=== PATIENT | female | born 1955 | race Caucasian/White ===

== ENCOUNTER 2020-11-14 08:58 | Emergency (ER) | payer MEDICARE, OTHER ==
[~2020-11-14] VITALS: Ht 160 cm; Wt 68.2 kg
[~2020-11-14 08:58] MED LIST: ASPI-1444 PO; CLON1TAB PO; GABA-1181 PO; SERT-158 PO; TOPI25 PO
[2020-11-14] MEDS ORDERED: LIDOCAINE/PF 2% 5 ML VIAL IM ONE (09:10)
[2020-11-14] MEDS ORDERED: PROPOFOL 1% 20 ML VIAL IVP ONE (09:10)
[2020-11-14] MEDS ORDERED: SUCCINYLCHOLINE CHLORIDE 20 MG/ML 10 ML VIAL IVP ONE (09:10)
[2020-11-14] MEDS ORDERED: MORPHINE SULFATE 4 MG/ML SYRINGE IVP ONE (09:30)
[2020-11-14] MEDS ORDERED: KETAMINE HCL 50 MG/ML 10 ML VIAL ONE (10:18)
[2020-11-14] MEDS ORDERED: KETAMINE HCL 50 MG/ML 10 ML VIAL IVP ONE (10:30)
[2020-11-14 12:42] VITALS: BP 146/73
== END 2020-11-14 13:11 | disposition left against medical advice (07) ==
LOC: EMS 09:09
DX: T84.021A Dislocation of internal left hip prosthesis, initial encounter (principal); F17.210 Nicotine dependence, cigarettes, uncomplicated; F41.9 Anxiety disorder, unspecified; J44.9 Chronic obstructive pulmonary disease, unspecified; X50.9XXA Other and unspecified overexertion or strenuous movements or postures, initial encounter; Y93.89 Activity, other specified; Y92.89 Other specified places as the place of occurrence of the external cause; Y99.8 Other external cause status; Z79.899 Other long term (current) drug therapy; Z79.82 Long term (current) use of aspirin
CPT/HCPCS: 27265; 72170; 96374; 99152; 99285; J0330; J2270; J2704; J3490 ×2

== ENCOUNTER 2021-02-04 18:52 | Inpatient (IN) | payer MEDICARE, MEDICAID ==
[~2021-02-04] VITALS: Ht 152.4 cm; Wt 68.8 kg
[2021-02-04] MEDS ORDERED: FLUO20CA36 PO (19:12)
[2021-02-04] MEDS ORDERED: METH-659 PO (19:12)
[2021-02-04] MEDS ORDERED: CARI1.5C PO (19:20)
[2021-02-04] MEDS ORDERED: SERT-162 PO (19:20)
[2021-02-04] MEDS ORDERED: DIVA-112 PO (19:20)
[2021-02-04] MEDS ORDERED: PREMC VG (19:20)
[2021-02-04] MEDS ORDERED: IPRA4AER IH (19:20)
[2021-02-04] MEDS ORDERED: ALEN70TA80 PO (19:20)
[2021-02-04] MEDS ORDERED: SUMA50TA17 PO (19:20)
[2021-02-04] MEDS ORDERED: TIOT185 IH (19:20)
[2021-02-04] MEDS ORDERED: ALBU8HFA IH (19:20)
[2021-02-04] MEDS ORDERED: GABA-1201 PO (19:20)
[2021-02-04] MEDS ORDERED: IBUP-2077 PO (19:20)
[2021-02-04] MEDS ORDERED: LORazepam 2 MG TABLET PO PRN (21:30)
[2021-02-04] MEDS ORDERED: ZOLPIDEM TARTRATE 10 MG TABLET PO PRN (21:30)
[2021-02-04 21:34] LABS: BASOPHILS % (AUTO) 0.8 % (0.0-2.0); EOSINOPHILS % (AUTO) 3.4 % (1.0-6.0); HEMATOCRIT 38.3 % (36-46); HEMOGLOBIN 12.7 g/dL (12.0-16.0); LYMPHOCYTES # (AUTO) 4.6 K/uL (1.0-4.8); LYMPHOCYTES % (AUTO) 51.2 % (22.0-44.0); MEAN CORPUSCULAR HEMOGLOBIN 31.4 pg (26.0-34.0); MEAN CORPUSCULAR HGB CONC 33.1 G/dL (31.0-37.0); MEAN CORPUSCULAR VOLUME 95 fL (80-100); MONOCYTES # (AUTO) 0.8 K/uL (0.1-1.0); MONOCYTES % (AUTO) 8.5 % (2.0-9.0); NEUTROPHILS # (AUTO) 3.3 K/uL (1.8-7.7); NEUTROPHILS % (AUTO) 36.1 % (40.0-70.0); PLATELET COUNT (AUTO) 288 K/uL (150-450); RED BLOOD CELL COUNT(AUTO) 4.04 MIL/uL (4.00-5.20); RED CELL DISTRIBUTION WIDTH 14.3 % (11.5-14.5)
[2021-02-04 21:37] LABS: COVID AG,FIA SOURCE NASOPHARYNGEAL
[2021-02-04 21:42] LABS: ANION GAP 10 mmol/L (8-16); CALCIUM, TOTAL 8.4 mg/dL (8.8-10.5); CARBON DIOXIDE 28 mmol/L (22-29); CHLORIDE 106 mmol/L (98-107); CREATININE 0.67 mg/dL (0.60-1.30); GLOMERULAR FILTR. RATE CALC > 60 mL/min (>60); GLUCOSE,RANDOM 121 mg/dL (70-110); POTASSIUM 4.2 mmol/L (3.5-5.1); SODIUM SERUM 144 mmol/L (136-145); UREA NITROGEN, BLOOD 15 mg/dL (7-18)
[2021-02-04 21:48] LABS: ALANINE AMINOTRANSFERASE 27 U/L (12-78); ALBUMIN 3.7 g/dL (3.4-5.0); ALKALINE PHOSPHATASE 60 U/L (46-116); ASPARTATE AMINOTRANSFERASE 16 U/L (15-37); BILIRUBIN,TOTAL 0.1 mg/dL (0.1-1.0); TOTAL PROTEIN, SERUM 7.2 g/dL (6.4-8.2)
[2021-02-04 22:33] LABS: APPEARANCE,URINE CLEAR (CLEAR); BILIRUBIN,URINE NEGATIVE (NEGATIVE); GLUCOSE, URINE (UA) NEGATIVE (NEGATIVE); KETONES,URINE TRACE mg/dL (NEGATIVE); LEUKOCYTE ESTERASE ,URINE TRACE (NEGATIVE); NITRATE,URINE NEGATIVE (NEGATIVE); OCCULT BLOOD,URINE NEGATIVE (NEGATIVE); PROTEIN,URINE NEGATIVE (NEGATIVE)
[2021-02-04 22:37] LABS: AMPHET/METH SCREEN,URINE POSITIVE (NEGATIVE); BARBITURATE SCREEN, URINE NEGATIVE (NEGATIVE); BENZODIAZEPINES SCREEN,URINE NEGATIVE (NEGATIVE); CANNABINOID SCREEN,URINE NEGATIVE (NEGATIVE); COCAINE SCREEN,URINE NEGATIVE (NEGATIVE); METHADONE SCREEN, URINE NEGATIVE (NEGATIVE); OPIATE SCREEN,URINE POSITIVE (NEGATIVE); PHENCYCLIDINE SCREEN,URINE NEGATIVE (NEGATIVE)
[2021-02-04 22:40] LABS: BACTERIA,URINE Rare /HPF (None Seen); RBC,URINE 0-2 /HPF (0-2); SQUAMOUS EPITHELIAL CELL,UR Moderate /LPF (None Seen)
[2021-02-04 22:41] LABS: CALCIUM OXALATE CRYSTALS,UR Moderate /LPF (None Seen)
[2021-02-05] VITALS (11 sets, daily range): BP systolic 111–138; BP diastolic 66–82
[2021-02-05 00:39] LABS: CHOL/HDL RATIO 4.2 (3.9-5.7); CHOLESTEROL 219 mg/dL (131-200); HDL CHOLESTEROL 52 mg/dL (40-60); TRIGLYCERIDES 607 mg/dL (15-150)
[2021-02-05] MEDS: LORazepam 2 MG TABLET PO PRN (01:43)
[2021-02-05] MEDS ORDERED: GuaiFENesin/D-METHORPHAN [SUGAR-FREE] 200-20MG/10 ML SYRUP UDCUP PO PRN (06:45)
[2021-02-05] MEDS ORDERED: MAGNESIUM HYDROXIDE SUSPENSION 30 ML UDCUP PO PRN (06:45)
[2021-02-05] MEDS ORDERED: ALBUTEROL SULFATE HFA 90 MCG/PUFF 8 GM INHALER IH PRN (06:45)
[2021-02-05] MEDS ORDERED: IBUPROFEN 400 MG TABLET PO PRN (06:45)
[2021-02-05] MEDS ORDERED: DOCUSATE SODIUM 100 MG CAPSULE PO PRN (06:45)
[2021-02-05] MEDS ORDERED: CloNIDine HCL 0.1 MG TABLET PO PRN (06:45)
[2021-02-05] MEDS ORDERED: PETROLATUM,WHITE 28 GM JELLY TP PRN (06:45)
[2021-02-05] MEDS ORDERED: NICOTINE 14 MG/24 HOUR PATCH TD PRN (06:45)
[2021-02-05] MEDS ORDERED: LOPERAMIDE HCL 2 MG CAPSULE PO PRN (06:45)
[2021-02-05] MEDS ORDERED: ONDANSETRON HCL 4 MG TABLET PO PRN (06:45)
[2021-02-05] MEDS ORDERED: MAG HYDROX/AL HYDROX/SIMETH ES 30 ML SUSPENSION UDCUP PO PRN (06:45)
[2021-02-05] MEDS ORDERED: LORazepam 2 MG TABLET PO PRN (07:00)
[2021-02-05] MEDS: LORazepam 2 MG TABLET PO SCH ×4 (08:21→20:43)
[2021-02-05] MEDS: ASPIRIN 81 MG DR TABLET PO SCH (08:21)
[2021-02-05] MEDS: GABAPENTIN 400 MG CAPSULE PO SCH ×3 (08:21→16:36)
[2021-02-05] MEDS: METHOCARBAMOL 500 MG TABLET PO SCH ×2 (12:43→16:36)
[2021-02-05] MEDS: HALOPERIDOL 5 MG TABLET PO PRN (13:39)
[2021-02-05] MEDS ORDERED: DENTURE ADHESIVE 68 GM CREAM DT PRN (15:15)
[2021-02-05] MEDS: ACETAMINOPHEN 325 MG TABLET PO PRN (17:24)
[2021-02-05] MEDS: SIMVASTATIN 10 MG TABLET PO SCH (20:43)
[2021-02-06 00:43] VITALS: BP 115/74
[2021-02-06 06:46] VITALS: BP 115/65
[2021-02-06 08:24] VITALS: BP 140/71
[2021-02-06 08:24] LABS: FREE T4 (FREE THYROXINE) 0.69 ng/dL (0.76-1.46); THYROID STIMULATING HORMONE 0.58 uIU/mL (0.36-3.74)
[2021-02-06] MEDS: ASPIRIN 81 MG DR TABLET PO SCH (08:52)
[2021-02-06] MEDS: METHOCARBAMOL 500 MG TABLET PO SCH ×2 (08:53→16:29)
[2021-02-06] MEDS: GABAPENTIN 400 MG CAPSULE PO SCH ×3 (08:53→16:30)
[2021-02-06] MEDS: LORazepam 2 MG TABLET PO SCH ×4 (08:53→20:45)
[2021-02-06] MEDS: ACETAMINOPHEN 325 MG TABLET PO PRN (12:16)
[2021-02-06] MEDS: FOLIC ACID 1 MG TABLET PO SCH (13:25)
[2021-02-06] MEDS: THIAMINE 100 MG TABLET PO SCH (13:25)
[2021-02-06] MEDS: OMEGA-3/DHA/EPA/FISH OIL 1,000 MG CAPSULE PO SCH (13:25)
[2021-02-06 14:41] VITALS: BP 107/53
[2021-02-06 16:05] VITALS: BP 103/65
[2021-02-06] MEDS: DIVALPROEX SODIUM 500 MG DR TABLET PO SCH (20:45)
[2021-02-06] MEDS: SIMVASTATIN 10 MG TABLET PO SCH (20:45)
[2021-02-07 04:17] VITALS: BP 114/58
[2021-02-07] MEDS ORDERED: LORazepam 1 MG TABLET PO PRN (07:00)
[2021-02-07 08:13] VITALS: BP 115/74
[2021-02-07] MEDS: METHOCARBAMOL 500 MG TABLET PO SCH ×2 (08:18→16:10)
[2021-02-07] MEDS: DIVALPROEX SODIUM 500 MG DR TABLET PO SCH ×2 (08:18→20:13)
[2021-02-07] MEDS: OMEGA-3/DHA/EPA/FISH OIL 1,000 MG CAPSULE PO SCH (08:18)
[2021-02-07] MEDS: THIAMINE 100 MG TABLET PO SCH (08:18)
[2021-02-07] MEDS: GABAPENTIN 400 MG CAPSULE PO SCH ×3 (08:20→16:10)
[2021-02-07] MEDS: ASPIRIN 81 MG DR TABLET PO SCH (08:21)
[2021-02-07] MEDS: FLUoxetine HCL 20 MG CAPSULE PO SCH (08:21)
[2021-02-07] MEDS: LORazepam 1 MG TABLET PO SCH ×4 (08:21→20:13)
[2021-02-07] MEDS: FOLIC ACID 1 MG TABLET PO SCH (08:21)
[2021-02-07] MEDS: HALOPERIDOL 5 MG TABLET PO PRN ×2 (09:52→17:17)
[2021-02-07] MEDS ORDERED: *PATIENT'S OWN MED [ENTER DRUG, DOSE, FREQUENCY IN COMMENTS] CLINICAL ONE (13:15)
[2021-02-07] MEDS ORDERED: FIXODENT PO PRN ×2 (13:15→13:16)
[2021-02-07 16:20] VITALS: BP 105/62
[2021-02-07] MEDS: HALOPERIDOL 5 MG TABLET PO SCH (20:14)
[2021-02-07] MEDS: SIMVASTATIN 10 MG TABLET PO SCH (20:14)
[2021-02-08 00:53] VITALS: BP 116/68
[2021-02-08] MEDS ORDERED: LORazepam 1 MG TABLET PO PRN (07:00)
[2021-02-08 08:15] VITALS: BP 119/76
[2021-02-08] MEDS: THIAMINE 100 MG TABLET PO SCH (09:00)
[2021-02-08] MEDS: FOLIC ACID 1 MG TABLET PO SCH (09:00)
[2021-02-08] MEDS: OMEGA-3/DHA/EPA/FISH OIL 1,000 MG CAPSULE PO SCH (09:00)
[2021-02-08] MEDS: METHOCARBAMOL 500 MG TABLET PO SCH ×2 (09:00→16:09)
[2021-02-08] MEDS: FLUoxetine HCL 20 MG CAPSULE PO SCH (09:00)
[2021-02-08] MEDS: ASPIRIN 81 MG DR TABLET PO SCH (09:00)
[2021-02-08] MEDS: DIVALPROEX SODIUM 500 MG DR TABLET PO SCH ×2 (09:11→20:12)
[2021-02-08] MEDS: LORazepam 2 MG TABLET PO PRN ×2 (09:20→16:09)
[2021-02-08] MEDS: HALOPERIDOL 5 MG TABLET PO SCH ×2 (09:20→20:12)
[2021-02-08] MEDS: GABAPENTIN 400 MG CAPSULE PO SCH ×3 (12:30→16:08)
[2021-02-08 16:07] VITALS: BP 103/76
[2021-02-08] MEDS: SIMVASTATIN 10 MG TABLET PO SCH (20:12)
[2021-02-09 00:07] VITALS: BP 104/56
[2021-02-09 08:10] VITALS: BP 111/60
[2021-02-09 08:19] LABS: COVID AG,FIA SOURCE NASOPHARYNGEAL
[2021-02-09] MEDS: METHOCARBAMOL 500 MG TABLET PO SCH (08:27)
[2021-02-09] MEDS: DIVALPROEX SODIUM 500 MG DR TABLET PO SCH (08:27)
[2021-02-09] MEDS: FLUoxetine HCL 20 MG CAPSULE PO SCH (08:28)
[2021-02-09] MEDS: GABAPENTIN 400 MG CAPSULE PO SCH ×2 (08:28→12:35)
[2021-02-09] MEDS: HALOPERIDOL 5 MG TABLET PO SCH (08:28)
[2021-02-09] MEDS: ASPIRIN 81 MG DR TABLET PO SCH (08:28)
[2021-02-09] MEDS: OMEGA-3/DHA/EPA/FISH OIL 1,000 MG CAPSULE PO SCH (08:28)
[2021-02-09] MEDS: THIAMINE 100 MG TABLET PO SCH (08:28)
[2021-02-09] MEDS: FOLIC ACID 1 MG TABLET PO SCH (09:51)
[2021-02-09] MEDS ORDERED: DIVA-112 PO (10:38)
[2021-02-09] MEDS ORDERED: HALO5TAB2 PO (10:38)
[2021-02-09] MEDS ORDERED: FLUO20CA36 PO (10:40)
[2021-02-09] MEDS ORDERED: GABA-1201 PO (10:51)
[2021-02-09] MEDS ORDERED: SIMV-259 PO ×2 (10:53)
== END 2021-02-09 13:05 | disposition home or self-care (01) | DRG 885 ==
LOC: EMS 18:52 → B2X 21:53
PROVIDERS: ADMIT Psychiatry & Neurology Psychiatry; ATTEND Psychiatry & Neurology Psychiatry
DX: F31.4 Bipolar disorder, current episode depressed, severe, without psychotic features (principal); R45.851 Suicidal ideations; J44.9 Chronic obstructive pulmonary disease, unspecified; F17.200 Nicotine dependence, unspecified, uncomplicated; F15.90 Other stimulant use, unspecified, uncomplicated; Y90.1 Blood alcohol level of 20-39 mg/100 ml; G43.909 Migraine, unspecified, not intractable, without status migrainosus; G89.29 Other chronic pain; Z96.649 Presence of unspecified artificial hip joint; Z91.19 Patient's noncompliance with other medical treatment and regimen; Z71.6 Tobacco abuse counseling; Z88.1 Allergy status to other antibiotic agents; G62.9 Polyneuropathy, unspecified; F10.10 Alcohol abuse, uncomplicated; M54.9 Dorsalgia, unspecified; Z20.822 Contact with and (suspected) exposure to COVID-19
CPT/HCPCS: 80053; 80061; 81001; 83036; 84439; 84443; 85025; 99285; G0480; Q0162